=== PATIENT | male | born 1950 | race Caucasian/White ===

== ENCOUNTER 2019-12-31 08:05 | Outpatient (CLI) | payer MEDICARE, BC, OTHER ==
--- NOTE | 2019-12-31 15:18 | RAD ---
XR Chest Pa Lat STANDARD History: Preop evaluation Comparison: None. Findings: Exam is limited due to leftward patient rotation. Old left-sided rib fractures. Midthoracic spine compression deformity with approximately 40% anterior height loss, likely T9. No confluent airspace consolidation, pneumothorax or effusion. Impression: No acute intrathoracic abnormality.
[2019-12-31 18:09] LABS: #Basophils 0.1 thou/uL (0.0-0.2); #Eosinphils 0.1 thou/uL (0.0-0.7); #Lymphocytes 2.9 thou/uL (1.20-3.40); #Monocytes 0.5 thou/uL (0.11-0.59); #Neutrophils 4.2 thou/uL (1.40-6.50); %Basophils 1.1 % (0.0-1.0); %Eosinophils 0.8 % (0.0-10.0); %Lymphocytes 37.3 % (21.0-51.0); %Monocytes 6.6 % (0.0-10.0); %Neutrophils 54.2 % (42.0-75.0); Mean Corpuscular HGB CONC 33.8 g/dL (32.0-36.0); Mean Corpuscular Hemoglobin 29.8 pg (27.0-31.0); Mean Corpuscular Volume 88.3 fL (78.0-98.0); Mean Platelet Volume 6.8 fL (7.4-10.4); Platelet Count 278 thou/uL (130-400); RBC Distribution Width 11.7 % (11.5-14.5); Red Blood Cell (RBC) Count 4.69 mill/uL (4.70-6.10); White Blood Cell (WBC) Count 7.7 thou/uL (4.8-10.8)
[2019-12-31 18:16] LABS: Anion Gap 12 mmol/L (10-20); BUN (Urea Nitrogen) 21 mg/dL (8.4-25.7); Calc. Creatinine Clearance 0 mL/min (70-130); Calcium 9.3 mg/dL (7.8-10.44); Carbon Dioxide 24 mmol/L (23-31); Chloride 104 mmol/L (98-107); Estimated GFR-MDRD 63; Glucose 100 mg/dL (80-115); Potassium 4.8 mmol/L (3.5-5.1); Sodium 135 mmol/L (136-145)
[2020-01-01 11:33] LABS: SARS-CoV-2 MS2 Positive; SARS-CoV-2 N Gene Negative; SARS-CoV-2 S Gene Negative; SARS-CoV-2 orf1ab Negative
== END 2019-12-31 08:06 | disposition home or self-care (01) ==
LOC: LABBT 08:05
PROVIDERS: ATTEND Specialist
DX: Z01.818 Encounter for other preprocedural examination (principal); Z11.59 Encounter for screening for other viral diseases; K40.90 Unilateral inguinal hernia, without obstruction or gangrene, not specified as recurrent
CPT/HCPCS: 71046; 80048; 85025; U0003; 87635

== ENCOUNTER 2020-01-03 10:25 | Day surgery (SDC) | payer MEDICARE, BC ==
[2019-12-30 12:26] VITALS: BMI 26.5
[2020-01-03] MEDS ORDERED: Ketorolac Tromethamine 30 MG/ML VIAL ONE (10:39)
[2020-01-03] MEDS ORDERED: Acetaminophen 500 MG TAB ONE (10:40)
[2020-01-03] MEDS ORDERED: Fentanyl 250 MCG/5 ML VIAL ONE (11:36)
[2020-01-03] MEDS ORDERED: Bupivacaine 0.25% HCL 30 ML VIAL ONE (11:44)
[2020-01-03] MEDS ORDERED: Lidocaine 1% w/Epinephrine 1:100K 20 ML VIAL ONE (11:44)
[2020-01-03] MEDS ORDERED: Lidocaine 1% PF 5 ML VIAL ONE (12:01)
[2020-01-03] MEDS ORDERED: Glycopyrrolate 0.2 MG/ML 5 ML SYRINGE ONE (12:01)
[2020-01-03] MEDS ORDERED: EPHEDRINE 25 MG/5 ML SYRINGE ONE (12:01)
[2020-01-03] MEDS ORDERED: PROPOFOL 200 MG/20 ML VIAL ONE (12:01)
[2020-01-03] MEDS ORDERED: Rocuronium Bromide 10 MG/ML (10ML VIAL) ONE (12:01)
[2020-01-03] MEDS ORDERED: Ondansetron PF 4 MG/2 ML Vial ONE (12:01)
[2020-01-03] MEDS ORDERED: Dexamethasone 20 MG/5 ML VIAL ONE (12:01)
--- NOTE | 2020-01-04 10:58 | OP ---
DATE OF PROCEDURE: 01/03/2020 PREOPERATIVE DIAGNOSIS: Left inguinal hernia. POSTOPERATIVE DIAGNOSIS: Bilateral inguinal hernia, indirect on both sides. PROCEDURE PERFORMED: Robotic-assisted bilateral inguinal hernia repair using large 3DMax mesh patch. ANESTHESIA: General endotracheal. INDICATIONS: The patient is a 69-year-old white male. He was recognized to have a substantial left inguinal hernia. I could not palpate a definite right inguinal hernia. He is taken to the operating room at this time for robotic repair. DESCRIPTION OF OPERATION: Informed consent was obtained. Patient was taken to the operating room, where general endotracheal anesthesia obtained, patient in supine position. Bobo catheter was placed, abdomen was prepped with ChloraPrep and draped in a sterile fashion. Local anesthetic was infiltrated and an 11 mm supraumbilical incision was created through which a Veress needle was passed into the peritoneal cavity and pneumoperitoneum was established using carbon dioxide up to pressure of 15 mmHg. An 11 mm trocar port was passed through the same incision and robotic camera was passed through this port. Under direct vision, 2 additional ports were placed at the supraumbilical level on either side of midline. Attention was turned inferiorly. For reasons that are uncertain, there were adhesions to the anterior abdominal wall that prevented visualization of the lower abdomen and pelvis. These were carefully taken down from the anterior abdominal wall using sharp dissection. As these were mobilized, it was quickly visualized that there was a large left indirect inguinal hernia. It was also recognized that there was a much smaller but definitely present right indirect inguinal hernia. I decided to proceed with a bilateral inguinal hernia repair. On the left side, a transverse peritoneal incision was created several centimeters superior to the hernia defect. Preperitoneal dissection was carried inferiorly. Medially, dissection was carried down to the pubic bone and Buddy's ligament. Laterally, the iliopubic tract was dissected to give space for mesh placement. In the central portion of the preperitoneal dissection, the hernia sac was carefully dissected off the cord. The peritoneum was widely mobilized off the cord and vas deferens. A large 3DMax mesh patch was obtained and placed within the preperitoneal space. It was secured in place with 3 interrupted sutures of 2-0 Vicryl. One was placed to the pubic tubercle and one to the anterior abdominal wall medial to the epigastric vessels and one lateral to the epigastric vessels. When this was well positioned, the peritoneum was closed with a running suture of 3-0 Stratafix. Attention was turned to the right side. A mirror-image operation was performed on the right as had been performed on the left. The hernia sac was much smaller than on the left. There was, however, a definite indirect defect that was visualized and dissected. three sutures to secure the mesh on the right. When both sides were completed, the fascial defect at the 11 mm port was closed with 0 Vicryl suture using a GraNee needle. All ports and instruments were removed under direct vision. Pneumoperitoneum was carefully evacuated. Additional local anesthetic was infiltrated at each port site. Skin edges approximated with 4-0 Monocryl subcuticular suture. Dermabond was placed externally. There were no complications. Patient tolerated the procedure well and was taken to recovery room in stable condition. Job ID: [id number]
== END 2020-01-03 18:00 | disposition home or self-care (01) ==
LOC: SDC 10:25
PROVIDERS: ATTEND Specialist
PROC: 0YUA4JZ Supplement Bilateral Inguinal Region with Synthetic Substitute, Percutaneous Endoscopic Approach (ICD-10-PCS; principal; 2020-01-03)
DX: K40.20 Bilateral inguinal hernia, without obstruction or gangrene, not specified as recurrent (principal); K66.0 Peritoneal adhesions (postprocedural) (postinfection); G20 Parkinson's disease; K21.9 Gastro-esophageal reflux disease without esophagitis; Z87.891 Personal history of nicotine dependence; Z79.899 Other long term (current) drug therapy; Z88.0 Allergy status to penicillin
CPT/HCPCS: 49650; C1781; J0690; J1100; J1885; J2001; J2405; J2704; J3010; S0020